=== PATIENT | male | born 1940 | race Caucasian/White ===

== ENCOUNTER 2017-08-14 09:56 | Inpatient (IN) | payer MEDICARE ==
[2017-08-13 10:44] LABS: BASOPHILS # (AUTO) 0.03 x10^3/uL (0-0.1); BASOPHILS % (AUTO) 1 % (0-1); EOSINOPHILS # (AUTO) 0.14 x10^3/uL (0-0.4); EOSINOPHILS % (AUTO) 3 % (1-7); LYMPHOCYTES # (AUTO) 0.95 x10^3/uL (1-3.4); LYMPHOCYTES % (AUTO) 17 % (22-44); MD NO; MEAN CORPUSCULAR HEMOGLOBIN 36.1 pg (27.5-34.5); MEAN CORPUSCULAR HGB CONC 33.7 g/dL (33.2-36.2); MEAN CORPUSCULAR VOLUME 107.1 fL (81-97); MEAN PLATELET VOLUME 8.4 fL (7.4-10.4); MONOCYTES # (AUTO) 0.57 x10^3/uL (0.2-0.8); MONOCYTES % (AUTO) 11 % (2-9); NEUTROPHILS # (AUTO) 3.75 x10^3/uL (1.8-6.8); NEUTROPHILS % (AUTO) 69 % (42-75); PLATELET COUNT 169 x10^3/uL (130-400); RED BLOOD COUNT 4.26 x10^6/uL (4.38-5.82); RED CELL DISTRIBUTION WIDTH 13.9 % (9.4-14.8)
[2017-08-13 10:46] LABS: MICROSCOPIC NOT IND
[2017-08-13 10:52] LABS: CULTURE INDICATED? NO
[2017-08-13 10:56] LABS: ALANINE AMINOTRANSFERASE 25 U/L (12-78); ANION GAP 5 mmol/L (5-15); CALCIUM 8.5 mg/dL (8.5-10.1); CHLORIDE 108 mmol/L (98-107)
[2017-08-13 10:58] LABS: ALKALINE PHOSPHATASE 71 U/L (45-117); BILIRUBIN,TOTAL 0.9 mg/dL (0.2-1.0); TOTAL PROTEIN 6.8 g/dL (6.4-8.2)
[~2017-08-14] VITALS: Ht 190.5 cm; Wt 86.3 kg
[~2017-08-14 09:56] MED LIST: ASPI-496 PO; DUTA0.5C PO; NAPR220C2 PO; POTA10TA17 PO; SUVO20TA PO; TAMS0.4C2 PO; ZOLP-413 PO
[2017-08-14] MEDS ORDERED: LACTATED RINGERS 1,000 ML IV SCH (11:32)
[2017-08-14] MEDS ORDERED: OxyconTIN ER 10 MG TAB.ER PO ONE (12:00)
[2017-08-14] MEDS ORDERED: ONDANSETRON ODT 8 MG PO ONE (12:00)
[2017-08-14] MEDS ORDERED: ACETAMINOPHEN 500 MG TABLET PO ONE (12:00)
[2017-08-14] MEDS ORDERED: GABAPENTIN 300 MG CAPSULE PO ONE (12:00)
[2017-08-14] MEDS ORDERED: FENTANYL PF 250 MCG/5ML ONE (12:30)
[2017-08-14] MEDS ORDERED: MIDAZOLAM 1 MG/ML, 2ML ONE (12:30)
[2017-08-14] MEDS ORDERED: PROPOFOL 10 MG/ML, 20ML ONE (12:31)
[2017-08-14] MEDS ORDERED: TRANEXAMIC ACID 100 MG/ML, 10ML ONE ×2 (12:31)
[2017-08-14] MEDS ORDERED: KETOROLAC 60 MG/2 ML ONE (12:31)
[2017-08-14] MEDS ORDERED: SODIUM CHLORIDE 0.9% 100 ML ONE (12:31)
[2017-08-14] MEDS ORDERED: VANCOMYCIN 1,000 MG ONE (12:31)
[2017-08-14] MEDS ORDERED: ROCURONIUM 10MG/ML,5ML ONE (12:31)
[2017-08-14] MEDS ORDERED: EPINEPHRINE 1 MG/ML, 1ML ONE (12:31)
[2017-08-14] MEDS ORDERED: ROPIvacaine/PF 0.2%, 20 ML ONE (12:32)
[2017-08-14] MEDS ORDERED: LIDOCAINE-MPF 2% ,5ML ONE (12:32)
[2017-08-14] MEDS ORDERED: DEXAMETHASONE 4 MG/ML, 1ML ONE ×2 (12:33)
[2017-08-14] MEDS ORDERED: LIDOCAINE 4%, 4 ML SYR/CANN TP ONE (12:35)
[2017-08-14] MEDS ORDERED: DEXMEDETOMIDINE 200 MCG/2 ML ONE (12:37)
[2017-08-14] MEDS ORDERED: MUPIROCIN OINT 2%, 22GM TP ONE (12:43)
[2017-08-14] MEDS ORDERED: PHARMACOKINETIC CONSULTATION MC ONE (13:00)
[2017-08-14] MEDS ORDERED: VANCOMYCIN 1,600 MG in SODIUM CHLORIDE 0.9% 250 ML IV ONE (13:00)
[2017-08-14] MEDS ORDERED: VANCOMYCIN PER PHARMACY MC PRN (13:00)
[2017-08-14] MEDS ORDERED: CEFAZOLIN 1,000 MG ONE (13:03)
[2017-08-14] MEDS ORDERED: NEOSTIGMINE 1 MG/ML, 10ML ONE ×2 (13:03)
[2017-08-14] MEDS ORDERED: GLYCOPYRROLATE 0.2MG/1ML, 5ML ONE (13:03)
[2017-08-14] MEDS ORDERED: MORPHINE SULFATE 4 MG/ML, 1ML IVPush PRN (15:00)
[2017-08-14] MEDS ORDERED: METOCLOPRAMIDE 5 MG/ML, 2ML IV PRN (15:00)
[2017-08-14] MEDS ORDERED: FENTANYL PF 100 MCG/2ML IV PRN (15:00)
[2017-08-14] MEDS ORDERED: PROMETHAZINE 25 MG/ML, 1ML IV PRN (15:00)
[2017-08-14] MEDS ORDERED: OXYcodone 5 MG/5 ML ORAL.SOL UDC PO PRN (15:00)
[2017-08-14] MEDS ORDERED: MEPERIDINE/PF 25MG/0.5ML IVPush PRN (15:00)
[2017-08-14] MEDS ORDERED: LABETALOL 5MG/ML, 20ML IV PRN (15:00)
[2017-08-14] MEDS ORDERED: hydrALAzine 20 MG/ML, 1ML IV PRN (15:00)
[2017-08-14] MEDS ORDERED: PROMETHAZINE 12.5 MG SUPP PR PRN (15:30)
[2017-08-14] MEDS ORDERED: PROMETHAZINE 25 MG/ML, 1ML IM PRN (15:30)
[2017-08-14] MEDS ORDERED: BISACODYL 10 MG SUPP PR PRN (15:30)
[2017-08-14] MEDS ORDERED: ONDANSETRON 2MG/ML, 2ML IV PRN (15:30)
[2017-08-14] MEDS ORDERED: HYDROcodone/APAP 10/325 MG TABLET PO PRN ×2 (15:30)
[2017-08-14] MEDS ORDERED: ONDANSETRON 4 MG TABLET PO PRN (15:30)
[2017-08-14] MEDS ORDERED: MAGNESIUM HYDROXIDE 8%, 30ML UDC PO PRN (15:30)
[2017-08-14] MEDS ORDERED: HYDROmorphone 1 MG/ML, 1ML IV PRN ×2 (15:30→16:30)
[2017-08-14] MEDS ORDERED: ACETAMINOPHEN 650 MG/20.3 ML UDC PO PRN (15:30)
[2017-08-14] MEDS ORDERED: ZOLPIDEM 5MG TABLET PO PRN (15:30)
[2017-08-14] MEDS ORDERED: ALUMINUM/MAG/SIMETHICONE 30 ML UDC PO PRN ×2 (15:30→17:00)
[2017-08-14] MEDS ORDERED: DIPHENHYDRAMINE 50 MG CAPSULE PO PRN (15:30)
[2017-08-14] MEDS ORDERED: DIAZEPAM 5 MG TABLET PO PRN (15:30)
[2017-08-14] MEDS ORDERED: SENNA/DOCUSATE TABLET PO PRN (15:30)
[2017-08-14] MEDS ORDERED: TRANEXAMIC ACID 1,000 MG in SODIUM CHLORIDE 0.9% 100 ML IVPB ONE (15:40)
[2017-08-14] MEDS ORDERED: OXYcodone 5 MG/5 ML ORAL.SOL UDC ONE (16:06)
[2017-08-14] MEDS ORDERED: HYDROmorphone 1 MG/ML, 1ML ONE (16:06)
[2017-08-14] MEDS: ASPIRIN 325 MG TABLET EC PO SCH (17:29)
[2017-08-14] MEDS: POTASSIUM CITRATE 20 MEQ PO SCH ×2 (17:31→20:41)
[2017-08-14] MEDS: D5%-0.45% NACL 1,000 ML IV SCH (17:33)
[2017-08-14 18:46] VITALS: BP 130/79
[2017-08-14] MEDS: DOCUSATE 100 MG CAPSULE PO SCH (20:37)
[2017-08-14] MEDS: CEFAZOLIN PMX 2GM/50ML 50 ML IVPB SCH (20:37)
[2017-08-14] MEDS: TAMSULOSIN 0.4 MG CAP.ER.24H PO SCH (20:37)
[2017-08-14] MEDS: TEMPLATE NON-FORMULARY MED. (Suvorexant (Belsomra) 20 MG) PO SCH (23:03)
[2017-08-15] MEDS: D5%-0.45% NACL 1,000 ML IV SCH ×4 (00:48→20:01)
[2017-08-15 03:19] VITALS: BP 134/80
[2017-08-15] MEDS: CEFAZOLIN PMX 2GM/50ML 50 ML IVPB SCH (04:14)
[2017-08-15] MEDS: ASPIRIN 325 MG TABLET EC PO SCH ×2 (05:23→18:01)
[2017-08-15] MEDS ORDERED: DEXAMETHASONE 4 MG/ML, 1ML IVPush SCH (06:00)
[2017-08-15] MEDS ORDERED: TAMSULOSIN 0.4 MG CAP.ER.24H PO ONE (06:30)
[2017-08-15 07:23] VITALS: BP 103/55
[2017-08-15] MEDS: DOCUSATE 100 MG CAPSULE PO SCH ×2 (08:44→20:00)
[2017-08-15] MEDS: MULTIVITAMINS/MINERALS TABLET PO SCH (08:44)
[2017-08-15] MEDS: DUTASTERIDE 0.5 MG CAPSULE PO SCH (08:44)
[2017-08-15] MEDS: POTASSIUM CITRATE 20 MEQ PO SCH ×3 (08:45→20:00)
[2017-08-15] MEDS: OXYcodone IR 5MG TABLET PO PRN (13:51)
[2017-08-15 14:30] VITALS: BP 114/61
[2017-08-15] MEDS: KETOROLAC 30 MG/1 ML IV SCH ×2 (16:22→23:10)
[2017-08-15] MEDS: TAMSULOSIN 0.4 MG CAP.ER.24H PO SCH (20:00)
[2017-08-15] MEDS: TEMPLATE NON-FORMULARY MED. (Suvorexant (Belsomra) 20 MG) PO SCH (20:01)
[2017-08-15 20:43] VITALS: BP 107/61
[2017-08-16 00:25] VITALS: BP 112/65
[2017-08-16] MEDS: OXYcodone IR 5MG TABLET PO PRN (00:30)
[2017-08-16] MEDS: D5%-0.45% NACL 1,000 ML IV SCH ×2 (02:33→09:26)
[2017-08-16] MEDS: ASPIRIN 325 MG TABLET EC PO SCH (06:13)
[2017-08-16] MEDS: KETOROLAC 30 MG/1 ML IV SCH (06:13)
[2017-08-16 07:49] VITALS: BP 108/53
[2017-08-16] MEDS: DUTASTERIDE 0.5 MG CAPSULE PO SCH (09:02)
[2017-08-16] MEDS: POTASSIUM CITRATE 20 MEQ PO SCH (09:02)
[2017-08-16] MEDS: DOCUSATE 100 MG CAPSULE PO SCH (09:26)
[2017-08-16] MEDS: MULTIVITAMINS/MINERALS TABLET PO SCH (09:26)
[2017-08-16] MEDS ORDERED: OXYC5TAB2 PO (13:11)
[2017-08-16 14:30] VITALS: BP 128/69
== END 2017-08-16 14:51 | disposition home or self-care (01) | DRG 470 ==
LOC: ORIP 09:56 → 4NOR 16:43
PROVIDERS: ADMIT Orthopaedic Surgery; ATTEND Orthopaedic Surgery
PROC: 0SRB06A Replacement of Left Hip Joint with Oxidized Zirconium on Polyethylene Synthetic Substitute, Uncemented, Open Approach (ICD-10-PCS; principal; 2017-08-14 13:00)
DX: M16.12 Unilateral primary osteoarthritis, left hip (principal); N40.1 Benign prostatic hyperplasia with lower urinary tract symptoms; R33.8 Other retention of urine
CPT/HCPCS: 36415; 80053; 81003; 85014; 85018; 85025; 86850; 86900; 87081; 93005; C1713; J0171; J0690; J1100; J1885; J2250; J2704; J2710; J2795; J3010; J3370; J3490; Q0162; C1776; J7050; J7120